=== PATIENT | female | born 1950 | race Caucasian/White ===

== ENCOUNTER 2022-10-22 03:59 | Inpatient (IN) | payer OTHER ==
[~2022-10-22] VITALS: Ht 165.1 cm; Wt 83.9 kg
[~2022-10-22 03:59] MED LIST: CEPH-548 PO; HYDR-3919 PO; HYDR12.585 PO; LEVO100T9 PO; LOSA100T4 PO; ROPI0.5T PO; SULF1TAB47
[2022-10-22 04:02] VITALS: BP_SYST 114
[2022-10-22 05:44] LABS: BASOPHILS % (AUTO) 0.1 % (0.0-2.0); EOSINOPHILS # (AUTO) 0.5 K/uL (0.0-0.4); EOSINOPHILS % (AUTO) 6.2 % (0.0-4.0); HEMATOCRIT 28.6 % (36-48); HEMOGLOBIN 9.3 g/dL (12.0-16.0); LYMPHOCYTES # (AUTO) 0.2 K/uL (1.0-5.5); MEAN CORPUSCULAR HEMOGLOBIN 26 pg (27-31); MEAN CORPUSCULAR HGB CONC 33 % (32-36); MEAN CORPUSCULAR VOLUME 79 fL (79.0-98.0); MONOCYTES # (AUTO) 0.6 K/uL (0.0-1.0); MONOCYTES % (AUTO) 7.8 % (1.7-9.3); NEUTROPHILS # (AUTO) 6.6 K/uL (1.8-7.7); NEUTROPHILS % (AUTO) 82.9 % (40.0-70.0); PLATELET COUNT (AUTO) 253 K/uL (130-430); RED BLOOD CELL COUNT(AUTO) 3.64 MIL/uL (4.2-6.2); RED CELL DISTRIBUTION WIDTH 17.8 % (9.0-15.0); WHITE BLOOD COUNT (AUTO) 7.9 K/uL (4.8-10.8)
[2022-10-22] MEDS ORDERED: KETOROLAC TROMETHAMINE 60 MG/2 ML VIAL IM ONE (06:00)
[2022-10-22 06:02] LABS: ANION GAP 12 (5-15); CHLORIDE 97 mmol/L (98-107); CREATININE 2.71 mg/dL (0.55-1.30); GLUCOSE 111 mg/dL (70-99); UREA NITROGEN, BLOOD 29 mg/dL (8-21)
[2022-10-22 06:15] LABS: ALANINE AMINOTRANSFERASE 31 U/L (12-78); ALBUMIN 3.7 g/dL (3.4-4.8); ASPARTATE AMINOTRANSFERASE 37 U/L (10-37); TOTAL BILIRUBIN 0.5 mg/dL (0.0-1.0)
[2022-10-22 06:36] LABS: BILIRUBIN,URINE NEGATIVE (NEGATIVE); BLOOD, URINE NEGATIVE (NEGATIVE); CLARITY/URINE CLEAR (CLEAR); COLOR,URINE YELLOW (YELLOW); GLUCOSE,URINE NEGATIVE (NEGATIVE); KETONES,URINE NEGATIVE (NEGATIVE); LEUKOCYTE ESTERASE ,URINE NEGATIVE (NEGATIVE); NITRITE, URINE NEGATIVE (NEGATIVE); PROTEIN URINE TRACE (NEGATIVE); UROBILINOGEN,URINE 0.2 (0.2-1.0)
[2022-10-22 06:51] LABS: URINE SULFO SALICYLIC ACID NEGATIVE (NEGATIVE)
[2022-10-22 06:52] LABS: BACTERIA,URINE FEW /HPF (None Seen); MUCUS,URINE None Seen /LPF (None Seen); RBC,URINE 0-3 /HPF (0-3)
[2022-10-22] MEDS ORDERED: VANCOMYCIN HCL 1,000 MG in NS 250 ML IV ONE (07:00)
[2022-10-22] MEDS ORDERED: NACL 0.9% 2,500 ML IV ONE (07:00)
[2022-10-22] MEDS ORDERED: VANCOMYCIN HCL 1000 MG/VIAL IV ONE (07:05)
[2022-10-22] MEDS ORDERED: D5/0.45 NS 1,000 ML IV ONE (07:30)
[2022-10-22 10:24] VITALS: BP_SYST 103
[2022-10-22 10:38] VITALS: BP_SYST 103
[2022-10-22] MEDS ORDERED: ONDANSETRON HCL 4 MG/2 ML VIAL IVP PRN (13:30)
[2022-10-22] MEDS ORDERED: LORazepam 2 MG/ML VIAL IVP PRN (13:30)
[2022-10-22] MEDS ORDERED: HYDROcodone/ACETAMIN 5-325 MG TAB (NORCO/ VICODIN) PO PRN (13:30)
[2022-10-22] MEDS ORDERED: NALOXONE HCL 0.4 MG/ML AMP (NARCAN) IVP PRN ×2 (13:30)
[2022-10-22] MEDS ORDERED: ACETAMINOPHEN 325 MG TABLET PO PRN (15:45)
[2022-10-22 16:00] VITALS: BP_SYST 114
[2022-10-22] MEDS: ACETAMINOPHEN 325 MG TABLET PO PRN (16:00)
[2022-10-22] MEDS: roPINIRole HCL 0.25 MG ( REQUIP )TABLET PO SCH ×2 (16:03→20:47)
[2022-10-22] MEDS: cefTRIAXone 1 GM IVPB PREMIX 50 ML IV SCH (17:46)
[2022-10-22 22:26] VITALS: BP_SYST 135
[2022-10-23 05:30] VITALS: BP_SYST 110
[2022-10-23 08:15] LABS: BASOPHILS % (AUTO) 0.2 % (0.0-2.0); EOSINOPHILS # (AUTO) 0.4 K/uL (0.0-0.4); EOSINOPHILS % (AUTO) 8.6 % (0.0-4.0); HEMATOCRIT 29.2 % (36-48); HEMOGLOBIN 9.5 g/dL (12.0-16.0); LYMPHOCYTES # (AUTO) 0.7 K/uL (1.0-5.5); LYMPHOCYTES % (AUTO) 13.5 % (20.5-51.5); MEAN CORPUSCULAR HEMOGLOBIN 26 pg (27-31); MEAN CORPUSCULAR HGB CONC 33 % (32-36); MEAN CORPUSCULAR VOLUME 79 fL (79.0-98.0); MONOCYTES # (AUTO) 0.3 K/uL (0.0-1.0); MONOCYTES % (AUTO) 5.7 % (1.7-9.3); NEUTROPHILS # (AUTO) 3.7 K/uL (1.8-7.7); PLATELET COUNT (AUTO) 237 K/uL (130-430); RED BLOOD CELL COUNT(AUTO) 3.69 MIL/uL (4.2-6.2); WHITE BLOOD COUNT (AUTO) 5.1 K/uL (4.8-10.8)
[2022-10-23 08:41] LABS: ANION GAP 11 (5-15); CALCIUM 7.9 mg/dL (8.4-11.0); CHLORIDE 100 mmol/L (98-107); CREATININE 1.25 mg/dL (0.55-1.30); GLUCOSE 95 mg/dL (70-99); PHOSPHORUS 3.7 mg/dL (2.7-4.5); UREA NITROGEN, BLOOD 19 mg/dL (8-21)
[2022-10-23] MEDS ORDERED: LOSARTAN POTASSIUM 50 MG TABLET (COZAAR) PO SCH (09:00)
[2022-10-23 10:25] VITALS: BP_SYST 122
[2022-10-23 10:28] VITALS: BP_SYST 103
[2022-10-23 10:31] VITALS: BP_SYST 84
[2022-10-23] MEDS: roPINIRole HCL 0.25 MG ( REQUIP )TABLET PO SCH ×3 (10:41→21:00)
[2022-10-23] MEDS: HYDROCHLOROTHIAZIDE 12.5 MG CAPSULE (HCTZ) PO SCH (10:41)
[2022-10-23] MEDS: LEVOTHYROXINE SODIUM 0.1 MG TABLET PO SCH (10:41)
[2022-10-23] MEDS: ACETAMINOPHEN 325 MG TABLET PO PRN (11:49)
[2022-10-23] MEDS: MIDODRINE HCL 5 MG TABLET (PROAMATINE) PO SCH ×2 (15:36→21:00)
[2022-10-23 16:00] VITALS: BP_SYST 103
[2022-10-23] MEDS: cefTRIAXone 1 GM IVPB PREMIX 50 ML IV SCH (17:31)
[2022-10-23 22:26] VITALS: BP_SYST 114
[2022-10-24 02:20] VITALS: BP_SYST 122
[2022-10-24 06:39] LABS: BASOPHILS % (AUTO) 0.3 % (0.0-2.0); EOSINOPHILS # (AUTO) 0.3 K/uL (0.0-0.4); EOSINOPHILS % (AUTO) 6.9 % (0.0-4.0); HEMATOCRIT 31.6 % (36-48); HEMOGLOBIN 10.3 g/dL (12.0-16.0); LYMPHOCYTES # (AUTO) 1.1 K/uL (1.0-5.5); LYMPHOCYTES % (AUTO) 30.1 % (20.5-51.5); MEAN CORPUSCULAR HEMOGLOBIN 25 pg (27-31); MEAN CORPUSCULAR HGB CONC 33 % (32-36); MEAN CORPUSCULAR VOLUME 78 fL (79.0-98.0); MONOCYTES # (AUTO) 0.3 K/uL (0.0-1.0); MONOCYTES % (AUTO) 8.8 % (1.7-9.3); NEUTROPHILS % (AUTO) 53.9 % (40.0-70.0); PLATELET COUNT (AUTO) 254 K/uL (130-430); RED BLOOD CELL COUNT(AUTO) 4.03 MIL/uL (4.2-6.2); RED CELL DISTRIBUTION WIDTH 18.2 % (9.0-15.0); WHITE BLOOD COUNT (AUTO) 3.7 K/uL (4.8-10.8)
[2022-10-24] MEDS: LEVOTHYROXINE SODIUM 0.1 MG TABLET PO SCH (07:00)
[2022-10-24 07:12] LABS: ALANINE AMINOTRANSFERASE 41 U/L (12-78); ANION GAP 12 (5-15); ASPARTATE AMINOTRANSFERASE 59 U/L (10-37); C-REACTIVE PROTEIN QUANT 0.5 mg/dL (0-0.5); CALCIUM 8.3 mg/dL (8.4-11.0); CHLORIDE 98 mmol/L (98-107); CREATININE 0.89 mg/dL (0.55-1.30); GLUCOSE 87 mg/dL (70-99); TOTAL BILIRUBIN 0.3 mg/dL (0.0-1.0); UREA NITROGEN, BLOOD 16 mg/dL (8-21)
[2022-10-24 08:00] VITALS: BP_SYST 113
[2022-10-24 08:23] VITALS: BP_SYST 108
[2022-10-24 08:35] LABS: ERYTHROCYTE SEDIMENTATION RATE 46 MM/HR (0-20)
[2022-10-24] MEDS: MIDODRINE HCL 5 MG TABLET (PROAMATINE) PO SCH ×3 (08:42→21:33)
[2022-10-24] MEDS: roPINIRole HCL 0.25 MG ( REQUIP )TABLET PO SCH ×3 (08:42→21:41)
[2022-10-24] MEDS: HYDROCHLOROTHIAZIDE 12.5 MG CAPSULE (HCTZ) PO SCH (08:42)
[2022-10-24] MEDS ORDERED: LIDOCAINE VISCOUS 2%, 15 ML UDC MM PRN ×2 (09:00→10:00)
[2022-10-24] MEDS ORDERED: fentaNYL CITRATE/PF 100 MCG/2 ML AMP IVP ONE (09:00)
[2022-10-24] MEDS ORDERED: MIDAZOLAM HCL 5 MG/5 ML VIAL IVP ONE (09:00)
[2022-10-24] MEDS ORDERED: BENZOCAINE 20% 0.5mL UD SPRAY MM ONE ×2 (09:00→10:00)
[2022-10-24 11:35] VITALS: BP_SYST 129
[2022-10-24 15:15] VITALS: BP_SYST 135
[2022-10-24] MEDS: cefTRIAXone 1 GM IVPB PREMIX 50 ML IV SCH (16:46)
[2022-10-24 19:00] VITALS: BP_SYST 124
[2022-10-24] MEDS ORDERED: SACCHAROMYCES BOULARDII 250 MG CAPSULE (FLORASTOR) PO SCH (21:00)
[2022-10-24] MEDS: HYDROcodone/ACETAMIN 10-325 MG TAB PO PRN (21:32)
[2022-10-24] MEDS: LACTOBACILLUS RHAMNOSUS GG 1 CAP CAPSULE PO SCH (21:32)
[2022-10-25 00:18] VITALS: BP_SYST 127
[2022-10-25] MEDS: LEVOTHYROXINE SODIUM 0.1 MG TABLET PO SCH (06:27)
[2022-10-25 08:00] VITALS: BP_SYST 139
[2022-10-25] MEDS: MIDODRINE HCL 5 MG TABLET (PROAMATINE) PO SCH ×3 (09:40→21:00)
[2022-10-25] MEDS: roPINIRole HCL 0.25 MG ( REQUIP )TABLET PO SCH ×3 (09:40→21:52)
[2022-10-25] MEDS: HYDROCHLOROTHIAZIDE 12.5 MG CAPSULE (HCTZ) PO SCH (09:45)
[2022-10-25] MEDS: LACTOBACILLUS RHAMNOSUS GG 1 CAP CAPSULE PO SCH ×2 (09:45→21:52)
[2022-10-25 11:45] VITALS: BP_SYST 149
[2022-10-25 16:10] VITALS: BP_SYST 144; BP_SYST 153
[2022-10-25 16:25] VITALS: BP_SYST 139
[2022-10-25 16:54] LABS: BILIRUBIN,URINE NEGATIVE (NEGATIVE); BLOOD, URINE NEGATIVE (NEGATIVE); CLARITY/URINE CLEAR (CLEAR); COLOR,URINE YELLOW (YELLOW); GLUCOSE,URINE NEGATIVE (NEGATIVE); KETONES,URINE NEGATIVE (NEGATIVE); LEUKOCYTE ESTERASE ,URINE NEGATIVE (NEGATIVE); NITRITE, URINE NEGATIVE (NEGATIVE); PROTEIN URINE TRACE (NEGATIVE); UROBILINOGEN,URINE 0.2 (0.2-1.0)
[2022-10-25] MEDS: cefTRIAXone 1 GM IVPB PREMIX 50 ML IV SCH (17:01)
[2022-10-25 17:05] LABS: BACTERIA,URINE RARE /HPF (None Seen); HYALINE CASTS, URINE 0-10 /LPF (None Seen); MUCUS,URINE 1+ /LPF (None Seen); RBC,URINE NONE SEEN /HPF (0-3); WBC,URINE 0-3 /HPF (0-3)
[2022-10-25 19:52] VITALS: BP_SYST 150
[2022-10-26 00:09] VITALS: BP_SYST 144
[2022-10-26] MEDS: LEVOTHYROXINE SODIUM 0.1 MG TABLET PO SCH (06:08)
[2022-10-26 06:55] LABS: BASOPHILS % (AUTO) 0.5 % (0.0-2.0); EOSINOPHILS % (AUTO) 0.5 % (0.0-4.0); HEMATOCRIT 32.1 % (36-48); HEMOGLOBIN 10.5 g/dL (12.0-16.0); LYMPHOCYTES # (AUTO) 2.2 K/uL (1.0-5.5); LYMPHOCYTES % (AUTO) 47.8 % (20.5-51.5); MEAN CORPUSCULAR HEMOGLOBIN 26 pg (27-31); MEAN CORPUSCULAR HGB CONC 33 % (32-36); MEAN CORPUSCULAR VOLUME 78 fL (79.0-98.0); MONOCYTES # (AUTO) 0.4 K/uL (0.0-1.0); MONOCYTES % (AUTO) 9.1 % (1.7-9.3); NEUTROPHILS % (AUTO) 42.1 % (40.0-70.0); PLATELET COUNT (AUTO) 266 K/uL (130-430); RED BLOOD CELL COUNT(AUTO) 4.12 MIL/uL (4.2-6.2); RED CELL DISTRIBUTION WIDTH 17.8 % (9.0-15.0); WHITE BLOOD COUNT (AUTO) 4.6 K/uL (4.8-10.8)
[2022-10-26 07:15] LABS: ANION GAP 13 (5-15); CALCIUM 8.3 mg/dL (8.4-11.0); CHLORIDE 94 mmol/L (98-107); CREATININE 0.84 mg/dL (0.55-1.30); GLUCOSE 81 mg/dL (70-99); THYROID STIMULATING HORMONE 1.41 uIu/mL (0.34-4.82); UREA NITROGEN, BLOOD 15 mg/dL (8-21); URIC ACID 6.8 mg/dL (2.4-7.0)
[2022-10-26 08:00] VITALS: BP_SYST 137
[2022-10-26 08:04] LABS: URINE SODIUM, RANDOM 100 mmol/L (40-220)
[2022-10-26] MEDS: MIDODRINE HCL 5 MG TABLET (PROAMATINE) PO SCH ×3 (09:00→21:15)
[2022-10-26] MEDS: LACTOBACILLUS RHAMNOSUS GG 1 CAP CAPSULE PO SCH ×2 (10:00→21:14)
[2022-10-26] MEDS: roPINIRole HCL 0.25 MG ( REQUIP )TABLET PO SCH ×3 (10:00→21:14)
[2022-10-26] MEDS ORDERED: LOPERAMIDE HCL 2 MG CAPSULE PO PRN (10:15)
[2022-10-26] MEDS ORDERED: amLODIPine BESYLATE 5 MG TABLET PO ONE (10:30)
[2022-10-26] MEDS: HYDROcodone/ACETAMIN 10-325 MG TAB PO PRN (11:21)
[2022-10-26 12:00] VITALS: BP_SYST 148
[2022-10-26 16:00] VITALS: BP_SYST 132
[2022-10-26] MEDS: cefTRIAXone 1 GM IVPB PREMIX 50 ML IV SCH (16:02)
[2022-10-26 19:52] VITALS: BP_SYST 110
[2022-10-27] VITALS: BP_SYST 123
[2022-10-27 06:50] LABS: ANION GAP 12 (5-15); CALCIUM 8.3 mg/dL (8.4-11.0); CHLORIDE 94 mmol/L (98-107); CREATININE 0.82 mg/dL (0.55-1.30); GLUCOSE 84 mg/dL (70-99); UREA NITROGEN, BLOOD 13 mg/dL (8-21)
[2022-10-27] MEDS: LEVOTHYROXINE SODIUM 0.1 MG TABLET PO SCH (06:50)
[2022-10-27 07:38] LABS: BASOPHILS % (AUTO) 0.4 % (0.0-2.0); EOSINOPHILS % (AUTO) 0.3 % (0.0-4.0); HEMATOCRIT 33.8 % (36-48); LYMPHOCYTES # (AUTO) 2.5 K/uL (1.0-5.5); LYMPHOCYTES % (AUTO) 44.5 % (20.5-51.5); MEAN CORPUSCULAR HEMOGLOBIN 26 pg (27-31); MEAN CORPUSCULAR HGB CONC 33 % (32-36); MEAN CORPUSCULAR VOLUME 79 fL (79.0-98.0); MONOCYTES # (AUTO) 0.5 K/uL (0.0-1.0); MONOCYTES % (AUTO) 8.3 % (1.7-9.3); NEUTROPHILS # (AUTO) 2.6 K/uL (1.8-7.7); NEUTROPHILS % (AUTO) 46.5 % (40.0-70.0); PLATELET COUNT (AUTO) 289 K/uL (130-430); RED CELL DISTRIBUTION WIDTH 17.7 % (9.0-15.0); WHITE BLOOD COUNT (AUTO) 5.6 K/uL (4.8-10.8)
[2022-10-27 07:47] VITALS: BP_SYST 129
[2022-10-27 08:06] LABS: CORTISOL (SERUM) 17.2 ug/dL (.)
[2022-10-27] MEDS: roPINIRole HCL 0.25 MG ( REQUIP )TABLET PO SCH ×3 (08:46→20:55)
[2022-10-27] MEDS: LACTOBACILLUS RHAMNOSUS GG 1 CAP CAPSULE PO SCH ×2 (08:46→20:55)
[2022-10-27] MEDS: amLODIPine BESYLATE 5 MG TABLET PO SCH (08:47)
[2022-10-27] MEDS: MIDODRINE HCL 5 MG TABLET (PROAMATINE) PO SCH ×3 (08:48→20:56)
[2022-10-27 11:25] VITALS: BP_SYST 107
[2022-10-27 15:50] VITALS: BP_SYST 138
[2022-10-27] MEDS: cefTRIAXone 1 GM IVPB PREMIX 50 ML IV SCH (18:01)
[2022-10-27] MEDS: KCL 20 mEq in NS 1000 mL 1,000 ML IV SCH (18:28)
[2022-10-27 20:00] VITALS: BP_SYST 112
[2022-10-28] VITALS (8 sets, daily range): BP systolic 98–150
[2022-10-28] MEDS: LEVOTHYROXINE SODIUM 0.1 MG TABLET PO SCH (05:34)
[2022-10-28] MEDS: roPINIRole HCL 0.25 MG ( REQUIP )TABLET PO SCH ×3 (08:56→21:27)
[2022-10-28] MEDS: MIDODRINE HCL 5 MG TABLET (PROAMATINE) PO SCH ×3 (08:56→21:27)
[2022-10-28] MEDS: LACTOBACILLUS RHAMNOSUS GG 1 CAP CAPSULE PO SCH ×2 (08:56→21:27)
[2022-10-28] MEDS: amLODIPine BESYLATE 5 MG TABLET PO SCH (08:59)
[2022-10-28 09:34] LABS: ANION GAP 10 (5-15); CHLORIDE 101 mmol/L (98-107); CREATININE 1.21 mg/dL (0.55-1.30); GLUCOSE 105 mg/dL (70-99); UREA NITROGEN, BLOOD 38 mg/dL (8-21)
[2022-10-28] MEDS: cefTRIAXone 1 GM IVPB PREMIX 50 ML IV SCH (17:08)
[2022-10-28] MEDS: KCL 20 mEq in NS 1000 mL 1,000 ML IV SCH (17:15)
[2022-10-28] MEDS: HYDROcodone/ACETAMIN 10-325 MG TAB PO PRN (18:48)
[2022-10-29] MEDS: KCL 20 mEq in NS 1000 mL 1,000 ML IV SCH ×2 (02:06→16:25)
[2022-10-29] MEDS: LEVOTHYROXINE SODIUM 0.1 MG TABLET PO SCH (06:17)
[2022-10-29 08:10] LABS: BASOPHILS % (AUTO) 0.5 % (0.0-2.0); EOSINOPHILS % (AUTO) 0.6 % (0.0-4.0); HEMATOCRIT 30.8 % (36-48); LYMPHOCYTES # (AUTO) 2.1 K/uL (1.0-5.5); LYMPHOCYTES % (AUTO) 28.5 % (20.5-51.5); MEAN CORPUSCULAR HEMOGLOBIN 26 pg (27-31); MEAN CORPUSCULAR HGB CONC 33 % (32-36); MEAN CORPUSCULAR VOLUME 78 fL (79.0-98.0); MONOCYTES # (AUTO) 0.5 K/uL (0.0-1.0); NEUTROPHILS # (AUTO) 4.6 K/uL (1.8-7.7); NEUTROPHILS % (AUTO) 63.4 % (40.0-70.0); PLATELET COUNT (AUTO) 341 K/uL (130-430); RED BLOOD CELL COUNT(AUTO) 3.92 MIL/uL (4.2-6.2); RED CELL DISTRIBUTION WIDTH 18.2 % (9.0-15.0); WHITE BLOOD COUNT (AUTO) 7.3 K/uL (4.8-10.8)
[2022-10-29 08:52] VITALS: BP_SYST 127
[2022-10-29 08:53] VITALS: BP_SYST 119
[2022-10-29] MEDS: LACTOBACILLUS RHAMNOSUS GG 1 CAP CAPSULE PO SCH ×2 (09:26→21:57)
[2022-10-29] MEDS: MIDODRINE HCL 5 MG TABLET (PROAMATINE) PO SCH ×3 (09:26→21:57)
[2022-10-29] MEDS: roPINIRole HCL 0.25 MG ( REQUIP )TABLET PO SCH ×3 (09:29→21:58)
[2022-10-29] MEDS: HYDROcodone/ACETAMIN 10-325 MG TAB PO PRN ×2 (09:50→16:24)
[2022-10-29 11:15] VITALS: BP_SYST 117; BP_SYST 119; BP_SYST 121
[2022-10-29 11:45] VITALS: BP_SYST 143
[2022-10-29 12:30] LABS: ANION GAP 11 (5-15); CALCIUM 8.1 mg/dL (8.4-11.0); CHLORIDE 101 mmol/L (98-107); GLUCOSE 90 mg/dL (70-99); UREA NITROGEN, BLOOD 8 mg/dL (8-21)
[2022-10-29 12:31] LABS: CREATININE < 0.20 mg/dL (0.55-1.30)
[2022-10-29 15:55] VITALS: BP_SYST 147
[2022-10-29] MEDS: cefTRIAXone 1 GM IVPB PREMIX 50 ML IV SCH (16:24)
[2022-10-29 20:00] VITALS: BP_SYST 142
[2022-10-30] VITALS: BP_SYST 138
[2022-10-30] MEDS: LEVOTHYROXINE SODIUM 0.1 MG TABLET PO SCH (06:44)
[2022-10-30 08:12] VITALS: BP_SYST 143
[2022-10-30] MEDS: MIDODRINE HCL 5 MG TABLET (PROAMATINE) PO SCH ×3 (09:00→21:00)
[2022-10-30] MEDS: LACTOBACILLUS RHAMNOSUS GG 1 CAP CAPSULE PO SCH ×2 (09:23→21:46)
[2022-10-30] MEDS: HYDROcodone/ACETAMIN 10-325 MG TAB PO PRN ×3 (09:23→10:55)
[2022-10-30] MEDS: roPINIRole HCL 0.25 MG ( REQUIP )TABLET PO SCH ×3 (09:23→21:46)
[2022-10-30] MEDS: KCL 20 mEq in NS 1000 mL 1,000 ML IV SCH (10:54)
[2022-10-30 11:37] VITALS: BP_SYST 153
[2022-10-30] MEDS ORDERED: METOPROLOL SUCCINATE 25 MG TAB.SR.24H (TOPROL XL) PO ONE (12:45)
[2022-10-30 15:36] VITALS: BP_SYST 124
[2022-10-30] MEDS: cefTRIAXone 1 GM IVPB PREMIX 50 ML IV SCH (18:57)
[2022-10-30 20:00] VITALS: BP_SYST 129
[2022-10-31] VITALS: BP_SYST 134
[2022-10-31] MEDS: HYDROcodone/ACETAMIN 10-325 MG TAB PO PRN ×2 (01:45→06:09)
[2022-10-31] MEDS: KCL 20 mEq in NS 1000 mL 1,000 ML IV SCH (04:20)
[2022-10-31] MEDS: LEVOTHYROXINE SODIUM 0.1 MG TABLET PO SCH (06:09)
[2022-10-31 08:00] VITALS: BP_SYST 131
[2022-10-31] MEDS: LACTOBACILLUS RHAMNOSUS GG 1 CAP CAPSULE PO SCH (08:32)
[2022-10-31] MEDS: MIDODRINE HCL 5 MG TABLET (PROAMATINE) PO SCH (08:32)
[2022-10-31] MEDS: roPINIRole HCL 0.25 MG ( REQUIP )TABLET PO SCH (08:34)
[2022-10-31] MEDS ORDERED: METOPROLOL SUCCINATE 25 MG TAB.SR.24H (TOPROL XL) PO SCH (09:00)
[2022-10-31 11:50] VITALS: BP_SYST 134
[2022-10-31] MEDS ORDERED: cephALEXin 500 MG CAPSULE PO SCH (12:00)
[2022-10-31] MEDS ORDERED: MIDO5TAB4 PO (14:37)
[2022-10-31] MEDS ORDERED: METO-540 PO (14:37)
[2022-10-31] MEDS ORDERED: CEPH-548 PO (14:37)
[2022-10-31 15:13] VITALS: BP_SYST 116
[2022-10-31 15:30] VITALS: BP_SYST 116
== END 2022-10-31 16:01 | disposition home health service (06) | DRG 871 ==
LOC: SED 03:59 → STU 07:23 → SMU 10-29 11:37 → STU 10-30 08:10
PROVIDERS: ADMIT Preventive Medicine Preventive Medicine/Occupational Environmental Medicine; ATTEND Family Medicine
PROC: 0H9NXZZ Drainage of Left Foot Skin, External Approach (ICD-10-PCS; principal; 2022-10-22)
DX: A41.9 Sepsis, unspecified organism (principal); N17.0 Acute kidney failure with tubular necrosis; E87.1 Hypo-osmolality and hyponatremia; N39.0 Urinary tract infection, site not specified; L03.032 Cellulitis of left toe; J45.909 Unspecified asthma, uncomplicated; D64.9 Anemia, unspecified; E03.9 Hypothyroidism, unspecified; E78.5 Hyperlipidemia, unspecified; E83.52 Hypercalcemia; G25.81 Restless legs syndrome; I12.9 Hypertensive chronic kidney disease with stage 1 through stage 4 chronic kidney disease, or unspecified chronic kidney disease; M43.12 Spondylolisthesis, cervical region; W18.39XA Other fall on same level, initial encounter; M47.812 Spondylosis without myelopathy or radiculopathy, cervical region; N18.9 Chronic kidney disease, unspecified; R09.02 Hypoxemia; E78.00 Pure hypercholesterolemia, unspecified; S60.00XA Contusion of unspecified finger without damage to nail, initial encounter; I95.1 Orthostatic hypotension; G90.8 Other disorders of autonomic nervous system; T39.395A Adverse effect of other nonsteroidal anti-inflammatory drugs [NSAID], initial encounter; Z20.822 Contact with and (suspected) exposure to COVID-19; Z98.84 Bariatric surgery status; Y93.89 Activity, other specified; Y92.091 Bathroom in other non-institutional residence as the place of occurrence of the external cause; Y99.8 Other external cause status; Z91.013 Allergy to seafood; Z91.018 Allergy to other foods; Z79.899 Other long term (current) drug therapy
CPT/HCPCS: 36415; 70450-TC; 71045; 72050-TC; 73140-TC; 76376; 80048; 80053; 81000; 82533; 82570; 83605; 83735; 83880; 83930; 83935; 84100; 84302; 84443; 84484; 84550; 85025; 85651-TC; 86140; 87040; 87230-TC; 93005; 93306; 93312; 93880; 95816; 96365; 96372; 97110-GP; 97112-GP; 97116-GP; 97163-GP; 97530-GP; 99291; G0378; J0696; J1885; J2001; J2250; J2310; J3010; J3370; J3480